=== PATIENT | female | born 1995 | race Caucasian/White ===

== ENCOUNTER 2020-12-22 00:44 | Emergency (ER) | payer OTHER ==
[~2020-12-22] VITALS: Ht 160 cm; Wt 95.5 kg
[2020-12-22] MEDS ORDERED: CEPHALEXIN500 MG PO (04:00)
== END 2020-12-22 04:16 | disposition home or self-care (01) ==
LOC: ED 00:44
DX: R59.0 Localized enlarged lymph nodes (principal); J45.909 Unspecified asthma, uncomplicated; G47.00 Insomnia, unspecified; F17.200 Nicotine dependence, unspecified, uncomplicated
CPT/HCPCS: 70491; 80053; 85025; 99284-25; Q9967